=== PATIENT | female | born 1980 | race Caucasian/White ===

== ENCOUNTER 2017-03-05 12:06 | Emergency (ER) | payer OTHER ==
[~2017-03-05] VITALS: Ht 157.5 cm; Wt 86.8 kg
[~2017-03-05 12:06] MED LIST: AMOXICILLIN500 MG PO; ANTIVERT25 MG PO; BACTRIM,SEPT1 TABLET PO; BENADRYL; BENADRYL25 MG PO; BENADRYL50 MG PO; BENTYL20 MG PO; CLARITIN10 M3 PO; FIORICET 50-301 EACH PO; FLEXERIL10 MG PO; FLONASE16 G1 BOTH NARES; GUAIFENESIN600 M1 PO; HYCODAN SYRUP480 ML PO; HYDROCODON-ACE1 EAC7 PO; KEFLEX500 MG PO; LOMOTIL TABLET1 EACH PO; MACRODANTIN100 MG PO; MECLIZINE HCL25 MG PO; MOTRIN; MOTRIN600 MG PO; NAPROSYN500 MG PO; NOHOMEMEDS; NORCO 5/3251 TABLET PO; PERCOCET 5/31 TABLET PO; PREDNISONE20 MG PO; PROMETHAZINE HC25 M1 PO; ROBITUSSIN AC,T10 ML PO; SIMVASTATIN20 MG PO; TORADOL10 MG PO; TRAMADOL HCL50 MG PO; TYLENOL EXTRA500 MG; TYLENOL EXTRA500 MG PO; VALIUM10 MG PO; VALIUM5 MG PO; VENTOLIN HFA18 GM IH; ZANTAC150 MG PO; ZOCOR40 MG PO; ZOFRAN ODT4 MG PO; ZOFRAN4 MG PO; ZOFRAN8 MG PO
[2017-03-05 13:43] VITALS: BP 135/79
== END 2017-03-05 13:44 | disposition home or self-care (01) ==
LOC: EME 12:06
DX: S00.12XA Contusion of left eyelid and periocular area, initial encounter (principal); Y04.2XXA Assault by strike against or bumped into by another person, initial encounter; Y07.01 Husband, perpetrator of maltreatment and neglect
CPT/HCPCS: 99281; 99284

== ENCOUNTER 2017-04-19 23:30 | Emergency (ER) | payer OTHER ==
[~2017-04-19] VITALS: Ht 157.5 cm; Wt 88.7 kg
[2017-04-20 01:56] LABS: EOSINOPHIL (%) 2.9 % (0-5); EOSINOPHIL COUNT 0.3 K/uL (0-0.3); HEMATOCRIT 34.7 % (36.0-46.0); IMMATURE GRANULOCYTE (%) 0.4 % (0.0-0.7); INSTRUMENT ABS NEUTROPHIL CT 6.2 K/uL; LYMPHOCYTE COUNT 2.5 K/uL (1.0-2.8); MCH 28.8 PG (29.0-34.0); MCHC 32.3 G/DL (30.0-36.0); MCV 89.2 FL (83-99); MEAN PLAT.VOLUME 10.1 uM^3 (9.5-12.4); MONOCYTE COUNT 0.7 K/uL (0-0.8); NEUTROPHIL (%) 63.7 % (45-76); NEUTROPHIL COUNT 6.2 K/uL (1.8-6.4); PLATELET COUNT 326 K/uL (156-360); RBC DIS.WIDTH-CV 12.9 % (11.8-14.6); RBC DIS.WIDTH-SD 42.3 % (39-53); RED BLOOD COUNT 3.89 M/uL (3.80-5.20); WHITE BLOOD COUNT 9.7 K/uL (4.1-10.2)
[2017-04-20 02:10] LABS: CHLORIDE 105 mEq/L (99-109); SODIUM 139 mEq/L (136-147)
[2017-04-20 02:11] LABS: GLUCOSE 93 mg/dL (70-99)
[2017-04-20 02:13] LABS: ANION GAP 7 MEQ/L (2-14)
[2017-04-20 02:15] LABS: GFR ESTIMATE (CALCULATED) > 59 mL/min/
[2017-04-20 02:16] LABS: UREA NITROGEN (BUN) 15 mg/dL (9-23)
[2017-04-20 02:25] LABS: QUANTITATIVE HCG < 4.0 MIU/ML
[2017-04-20 02:44] LABS: ADD MIUA? NO; BILIRUBIN NEGATIVE; BLOOD NEGATIVE; COLOR YELLOW ((YELLOW)); GLUCOSE (STRIP) NEGATIVE; KETONES NEGATIVE; LEUKOCYTES NEGATIVE; NITRITE NEGATIVE; PROTEIN (STRIP) 30; SPECIFIC GRAVITY 1.013 (1.000-1.030); UCUL ADDED? NO; UROBILINOGEN 0.2 MG/DL (0.2-1.0)
[2017-04-20] MEDS ORDERED: ZOFRAN4 MG PO (03:17)
[2017-04-20 03:31] VITALS: BP 113/73
== END 2017-04-20 03:33 | disposition home or self-care (01) ==
LOC: EME 23:30
PROVIDERS: Emergency Medicine
DX: G43.909 Migraine, unspecified, not intractable, without status migrainosus (principal); E86.0 Dehydration; T43.611A Poisoning by caffeine, accidental (unintentional), initial encounter; E78.5 Hyperlipidemia, unspecified; I10 Essential (primary) hypertension; Z87.442 Personal history of urinary calculi; Z88.0 Allergy status to penicillin; Z88.1 Allergy status to other antibiotic agents
CPT/HCPCS: 80048; 81003; 84702; 85025; 99281; 99284

== ENCOUNTER 2017-07-29 12:55 | Emergency (ER) | payer OTHER ==
[~2017-07-29] VITALS: Ht 157.5 cm; Wt 88.0 kg
[2017-07-29] MEDS ORDERED: KEFLEX500 MG PO (14:06)
[2017-07-29] MEDS ORDERED: BACTROBAN OINTM22 GM TP (14:06)
[2017-07-29 14:20] VITALS: BP 122/78
== END 2017-07-29 14:21 | disposition home or self-care (01) ==
LOC: EME 12:55
DX: O26.892 Other specified pregnancy related conditions, second trimester (principal); T17.1XXA Foreign body in nostril, initial encounter; W26.8XXA Contact with other sharp object(s), not elsewhere classified, initial encounter; J34.0 Abscess, furuncle and carbuncle of nose; O09.512 Supervision of elderly primigravida, second trimester; Z3A.16 16 weeks gestation of pregnancy; Z88.0 Allergy status to penicillin
CPT/HCPCS: 99281; 99283

== ENCOUNTER 2017-08-12 14:12 | Emergency (ER) | payer OTHER ==
[~2017-08-12] VITALS: Ht 160 cm; Wt 91.9 kg
[~2017-08-12 14:12] MED LIST changes: +BACTROBAN OINTM22 GM TP
[2017-08-12 14:43] LABS: HEMATOCRIT 37.7 % (36.0-46.0); MCH 28.8 PG (29.0-34.0); MCHC 32.9 G/DL (30.0-36.0); MCV 87.7 FL (83-99); MEAN PLAT.VOLUME 10.3 uM^3 (9.5-12.4); PLATELET COUNT 338 K/uL (156-360); RBC DIS.WIDTH-CV 13.1 % (11.8-14.6); RBC DIS.WIDTH-SD 42.2 % (39-53); WHITE BLOOD COUNT 11.6 K/uL (4.1-10.2)
[2017-08-12 14:51] LABS: CHLORIDE 106 mEq/L (99-109); POTASSIUM 3.9 mEq/L (3.7-5.4); SODIUM 138 mEq/L (136-147)
[2017-08-12 14:53] LABS: GLUCOSE 89 mg/dL (70-99)
[2017-08-12 14:54] LABS: ANION GAP 9 MEQ/L (2-14)
[2017-08-12 14:55] LABS: TOTAL BILIRUBIN 0.7 mg/dL (0.0-1.0)
[2017-08-12 14:56] LABS: ALKALINE PHOSPHATASE 56 IU/L (3-129)
[2017-08-12 14:57] LABS: GFR ESTIMATE (CALCULATED) > 59 mL/min/
[2017-08-12 14:58] LABS: UREA NITROGEN (BUN) 13 mg/dL (9-23)
[2017-08-12 15:05] LABS: QUANTITATIVE HCG 7989.1 MIU/ML
[2017-08-12 15:12] LABS: ADD MIUA? YES; BILIRUBIN NEGATIVE; BLOOD MODERATE; GLUCOSE (STRIP) NEGATIVE; KETONES NEGATIVE; LEUKOCYTES SMALL; NITRITE NEGATIVE; PROTEIN (STRIP) NEGATIVE; SPECIFIC GRAVITY 1.005 (1.000-1.030); UROBILINOGEN 0.2 MG/DL (0.2-1.0)
[2017-08-12 15:15] LABS: COLOR COLORLESS ((YELLOW))
[2017-08-12 15:22] LABS: BACTERIA RARE /HPF; EPITHELIAL CELLS RARE /HPF; MUCUS TRACE /LPF; RED BLOOD CELLS 0-5 /HPF (0-5); WHITE BLOOD CELLS 0-5 /HPF (0-5)
[2017-08-12] MEDS ORDERED: ZOFRAN ODT4 MG PO (15:36)
[2017-08-12 15:53] VITALS: BP 134/84
[2017-08-16] MEDS ORDERED: KEFLEX500 MG PO (11:52)
[2017-08-16] MEDS ORDERED: TYLENOL EXTRA500 MG PO (11:53)
== END 2017-08-12 15:54 | disposition home or self-care (01) ==
LOC: EME 14:12
PROVIDERS: Nurse Practitioner Family
DX: O26.899 Other specified pregnancy related conditions, unspecified trimester (principal); R10.30 Lower abdominal pain, unspecified; R42 Dizziness and giddiness; R07.9 Chest pain, unspecified; O20.9 Hemorrhage in early pregnancy, unspecified; O09.529 Supervision of elderly multigravida, unspecified trimester; Z87.442 Personal history of urinary calculi
CPT/HCPCS: 80053; 81003; 84702; 85027; 99281; 99283

== ENCOUNTER 2017-08-15 15:43 | Emergency (ER) | payer OTHER ==
[~2017-08-15] VITALS: Ht 157.5 cm; Wt 90.8 kg
[2017-08-15 18:24] LABS: HEMATOCRIT 37.3 % (36.0-46.0); MCH 28.6 PG (29.0-34.0); MCHC 32.7 G/DL (30.0-36.0); MCV 87.6 FL (83-99); MEAN PLAT.VOLUME 10.2 uM^3 (9.5-12.4); PLATELET COUNT 326 K/uL (156-360); RBC DIS.WIDTH-SD 41.6 % (39-53); RED BLOOD COUNT 4.26 M/uL (3.80-5.20); WHITE BLOOD COUNT 14.1 K/uL (4.1-10.2)
[2017-08-15 18:33] LABS: CHLORIDE 106 mEq/L (99-109); POTASSIUM 3.4 mEq/L (3.7-5.4); SODIUM 136 mEq/L (136-147)
[2017-08-15 18:35] LABS: GLUCOSE 95 mg/dL (70-99)
[2017-08-15 18:36] LABS: ANION GAP 7 MEQ/L (2-14)
[2017-08-15 18:39] LABS: GFR ESTIMATE (CALCULATED) > 59 mL/min/
[2017-08-15 18:40] LABS: UREA NITROGEN (BUN) 19 mg/dL (9-23)
[2017-08-15 18:47] LABS: QUANTITATIVE HCG 11295.5 MIU/ML
[2017-08-15 20:28] VITALS: BP 136/82
[2017-08-16] MEDS ORDERED: KEFLEX500 MG PO (11:52)
[2017-08-16] MEDS ORDERED: TYLENOL EXTRA500 MG PO (11:53)
[2017-08-16] MEDS ORDERED: HYDROCODON-ACE1 EAC7 PO (16:53)
[2017-08-16] MEDS ORDERED: IBUPROFEN800 MG PO (16:53)
== END 2017-08-15 20:40 | disposition home or self-care (01) ==
LOC: EME 15:43
PROVIDERS: Emergency Medicine
DX: O00.102 Left tubal pregnancy without intrauterine pregnancy (principal); I10 Essential (primary) hypertension; E78.5 Hyperlipidemia, unspecified; J45.909 Unspecified asthma, uncomplicated; Z88.0 Allergy status to penicillin; Z88.8 Allergy status to other drugs, medicaments and biological substances
CPT/HCPCS: 76801; 80048; 84702; 85027; 86900; 86901; 99281; 99284

== ENCOUNTER 2017-08-16 12:09 | Day surgery (SDC) | payer OTHER ==
[~2017-08-16] VITALS: Ht 157.5 cm; Wt 89.4 kg
[2017-08-16 12:53] VITALS: BP 124/78
[2017-08-16 12:56] LABS: EOSINOPHIL (%) 0.7 % (0-5); EOSINOPHIL COUNT 0.1 K/uL (0-0.3); HEMATOCRIT 38.2 % (36.0-46.0); IMMATURE GRANULOCYTE (%) 0.5 % (0.0-0.7); IMMATURE GRANULOCYTE COUNT 0.1 K/uL; INSTRUMENT ABS NEUTROPHIL CT 6.7 K/uL; LYMPHOCYTE COUNT 2.2 K/uL (1.0-2.8); MCH 28.4 PG (29.0-34.0); MCHC 32.5 G/DL (30.0-36.0); MCV 87.4 FL (83-99); MEAN PLAT.VOLUME 10.3 uM^3 (9.5-12.4); MONOCYTE (%) 6.5 % (3-12); MONOCYTE COUNT 0.6 K/uL (0-0.8); NEUTROPHIL (%) 68.9 % (45-76); NEUTROPHIL COUNT 6.7 K/uL (1.8-6.4); PLATELET COUNT 318 K/uL (156-360); RBC DIS.WIDTH-CV 12.9 % (11.8-14.6); RBC DIS.WIDTH-SD 41.1 % (39-53); RED BLOOD COUNT 4.37 M/uL (3.80-5.20); WHITE BLOOD COUNT 9.7 K/uL (4.1-10.2)
[2017-08-16] MEDS ORDERED: IBUPROFEN800 MG PO (16:53)
[2017-08-16] MEDS ORDERED: HYDROCODON-ACE1 EAC7 PO (16:53)
[2017-08-16 18:42] VITALS: BP 99/55
[2017-08-16 19:35] VITALS: BP 112/56
== END 2017-08-16 19:56 | disposition home or self-care (01) ==
LOC: SDC 12:09
PROVIDERS: Obstetrics & Gynecology
DX: O00.102 Left tubal pregnancy without intrauterine pregnancy (principal); I10 Essential (primary) hypertension; E66.9 Obesity, unspecified; Z68.36 Body mass index [BMI] 36.0-36.9, adult; D25.9 Leiomyoma of uterus, unspecified; J45.909 Unspecified asthma, uncomplicated; F41.8 Other specified anxiety disorders; Z88.0 Allergy status to penicillin; Z87.891 Personal history of nicotine dependence
CPT/HCPCS: 85025; 88305; 93005; J0131; J0330; J1100; J1170; J1885; J2250; J2405; J2710; J2765; J3010

== ENCOUNTER 2017-08-27 12:57 | Emergency (ER) | payer OTHER ==
[~2017-08-27] VITALS: Ht 157.5 cm; Wt 91.7 kg
[~2017-08-27 12:57] MED LIST changes: +IBUPROFEN800 MG PO
[2017-08-27 13:28] LABS: ADD MIUA? YES; BILIRUBIN NEGATIVE; BLOOD MODERATE; COLOR YELLOW ((YELLOW)); GLUCOSE (STRIP) NEGATIVE; KETONES NEGATIVE; LEUKOCYTES MODERATE; NITRITE NEGATIVE; PROTEIN (STRIP) NEGATIVE; SPECIFIC GRAVITY 1.018 (1.000-1.030); UROBILINOGEN 0.2 MG/DL (0.2-1.0)
[2017-08-27 13:54] LABS: EPITHELIAL CELLS 1+ /HPF; MUCUS 1+ /LPF; RED BLOOD CELLS 0-5 /HPF (0-5)
[2017-08-27 13:55] LABS: BACTERIA 1+ /HPF; CASTS NONE SEEN /LPF; CRYSTALS NONE SEEN; UCUL ADDED? YES
[2017-08-27 15:08] LABS: HEMATOCRIT 37.3 % (36.0-46.0); MCH 28.8 PG (29.0-34.0); MCHC 32.4 G/DL (30.0-36.0); MCV 88.8 FL (83-99); MEAN PLAT.VOLUME 10.7 uM^3 (9.5-12.4); PLATELET COUNT 349 K/uL (156-360); RBC DIS.WIDTH-CV 13.1 % (11.8-14.6); RBC DIS.WIDTH-SD 42.4 % (39-53); WHITE BLOOD COUNT 10.1 K/uL (4.1-10.2)
[2017-08-27 15:17] LABS: CHLORIDE 106 mEq/L (99-109); POTASSIUM 3.6 mEq/L (3.7-5.4); SODIUM 139 mEq/L (136-147)
[2017-08-27 15:20] LABS: GLUCOSE 96 mg/dL (70-99)
[2017-08-27 15:21] LABS: ANION GAP 10 MEQ/L (2-14)
[2017-08-27 15:22] LABS: TOTAL BILIRUBIN 0.8 mg/dL (0.0-1.0)
[2017-08-27 15:23] LABS: ALKALINE PHOSPHATASE 52 IU/L (3-129); GFR ESTIMATE (CALCULATED) > 59 mL/min/
[2017-08-27 15:24] LABS: UREA NITROGEN (BUN) 13 mg/dL (9-23)
[2017-08-27 15:33] LABS: QUANTITATIVE HCG 30.8 MIU/ML
[2017-08-27] MEDS ORDERED: MACROBID100 MG PO (17:12)
[2017-08-27 17:37] VITALS: BP 156/94
== END 2017-08-27 17:39 | disposition home or self-care (01) ==
LOC: EME 12:57
DX: N39.0 Urinary tract infection, site not specified (principal); E78.5 Hyperlipidemia, unspecified; I10 Essential (primary) hypertension; Z87.442 Personal history of urinary calculi; Z88.0 Allergy status to penicillin; Z88.8 Allergy status to other drugs, medicaments and biological substances
CPT/HCPCS: 74177; 80053; 81003; 84702; 85027; 87086; 93005; 99281; 99284; J7030

== ENCOUNTER 2017-09-25 07:53 | Emergency (ER) | payer OTHER ==
[~2017-09-25] VITALS: Ht 157.5 cm; Wt 92.3 kg
[~2017-09-25 07:53] MED LIST changes: +MACROBID100 MG PO
[2017-09-25 09:22] VITALS: BP 136/83
[2017-09-25] MEDS ORDERED: PREDNISONE20 MG PO (20:05)
[2017-09-25] MEDS ORDERED: VENTOLIN HFA18 GM IH (20:05)
== END 2017-09-25 09:23 | disposition left against medical advice (07) ==
LOC: EME 07:53
DX: M79.604 Pain in right leg (principal); R06.02 Shortness of breath; I10 Essential (primary) hypertension; E78.5 Hyperlipidemia, unspecified; G89.29 Other chronic pain; Z87.442 Personal history of urinary calculi; Z87.440 Personal history of urinary (tract) infections; Z88.0 Allergy status to penicillin; Z88.1 Allergy status to other antibiotic agents; Z88.8 Allergy status to other drugs, medicaments and biological substances
CPT/HCPCS: 71010; 84484; 85025; 85610; 85730; 93005; 99281; 99284

== ENCOUNTER 2017-09-25 16:02 | Emergency (ER) | payer OTHER ==
[~2017-09-25] VITALS: Ht 157.5 cm; Wt 90.0 kg
[2017-09-25 16:11] VITALS: BP 169/87
[2017-09-25] MEDS ORDERED: PREDNISONE20 MG PO (20:05)
[2017-09-25] MEDS ORDERED: VENTOLIN HFA18 GM IH (20:05)
== END 2017-09-25 20:18 | disposition home or self-care (01) ==
LOC: EME 16:02 → RME 16:02
DX: S90.31XA Contusion of right foot, initial encounter (principal); J45.909 Unspecified asthma, uncomplicated; Z88.0 Allergy status to penicillin; Z88.1 Allergy status to other antibiotic agents; Z88.8 Allergy status to other drugs, medicaments and biological substances
CPT/HCPCS: 71020; 73630; 94640; J7512